=== PATIENT | female | born 1980 | race Caucasian/White ===

== ENCOUNTER 2018-07-08 17:31 | Emergency (ER) | payer SELFPAY ==
[~2018-07-08] VITALS: Ht 154.9 cm; Wt 80.7 kg
[2018-07-08 17:37] VITALS: BP 132/79; PULSE 92; RESP 17; Ht 154.9 cm; Wt 80.7 kg
[2018-07-08] MEDS ORDERED: HYDR28.334 TP (21:16)
[2018-07-08] MEDS ORDERED: LORA10CA PO (21:16)
[2018-07-08] MEDS ORDERED: BEN25 PO (21:16)
--- NOTE | 2018-07-08 21:22 | ERD ---
ER Documentation Chief Complaint Chief Complaint x 2 wks of worsening itchness and "dry skin" to L hand thumb HPI 38-year-old female presents for itchiness of her hand for about 2 weeks. She has dry skin. Itchiness and dryness is noted over the left thumb area and right third digit. She has prior similar symptoms in the past. She has been using coconut oil, aloe vera, Aquaphor hydration however she states that the skin dryness and itchiness is continuing. ROS All systems reviewed and are negative except as per history of present illness. Medications Home Meds Active Scripts Loratadine* (Claritin*) 10 Mg Capsule, 10 MG PO DAILY PRN for ITCHING, #30 CAP Prov:BELÉN BOTELLO DO 07/08/18 Hydrocortisone (Hydrocortisone Cr) 28.35 Gm Cr, 28.35 GM TP BID PRN for ITCHING for 7 Days, #1 TUBE Prov:BELÉN BOTELLO DO 07/08/18 Diphenhydramine Hcl* (Benadryl*) 25 Mg Cap, 25 MG PO Q6H PRN for ITCHING, #30 CAP Prov:BELÉN BOTELLO DO 07/08/18 Allergies Allergies: Coded Allergies: No Known Allergy (Unverified , 07/08/18) PMhx/Soc History of Surgery: Yes (APPENDECITIS) Hx Alcohol Use: No Hx Substance Use: No Hx Tobacco Use: No Smoking Status: Never smoker Physical Exam Vitals Vital Signs Date Temp Pulse Resp B/P (MAP) Pulse Ox O2 O2 Flow FiO2 Time Delivery Rate 07/08/18 98.7 92 17 132/79 97 17:37 (96) Physical Exam Const: No acute distress Resp: Clear to auscultation bilaterally, cap refill less than 2 seconds in all fingertips bilaterally Cardio: Regular rate and rhythm, no murmurs Skin: There is some dryness and skin cracking noted over the left thumb area and right third digit distally. Back: No midline or flank tenderness Neur: Awake and alert, bilateral hand sensation intact Psych: Normal Mood and Affect Procedures/MDM Medical Decision Making: Differential diagnosis includes but not limited to dermatitis, cellulitis, venous insufficiency Patient appeared well on physical exam. There was some dryness and skin cracking noted over the left thumb area and right third digit distally. Patient was neurovascularly intact. Physical examination consistent with a dermatitis possible contact dermatitis Prescription(s): Patient given prescription for supportive medication(s) including, Claritin, Benadryl, hydrocortisone cream. Advised that if symptoms do not improve that she may need to follow-up with dermatology Patient advised to follow up with PCP in 1-2 days. Patient advised to return to ED for new or worsening symptoms. Patient stable on discharge from the ED. Disclaimer: Inadvertent spelling and grammatical errors are likely due to EHR/dictation software use and do not reflect on the overall quality of patient care. Also, please note that the electronic time recorded on this note does not necessarily reflect the actual time of the patient encounter. Departure Diagnosis: Primary Impression: Dermatitis Condition: Fair Patient Instructions: Dermatitis, Non-Specific Referrals: [facility] YOU HAVE RECEIVED A MEDICAL SCREENING EXAM AND THE RESULTS INDICATE THAT YOU DO NOT HAVE A CONDITION THAT REQUIRES URGENT TREATMENT IN THE EMERGENCY DEPARTMENT. FURTHER EVALUATION AND TREATMENT OF YOUR CONDITION CAN WAIT UNTIL YOU ARE SEEN IN YOUR DOCTORS OFFICE WITHIN THE NEXT 1-2 DAYS. IT IS YOUR RESPONSIBILITY TO MAKE AN APPOINTMENT FOR FOLOW-UP CARE. IF YOU HAVE A PRIMARY DOCTOR --you should call your primary doctor and schedule an appointment IF YOU DO NOT HAVE A PRIMARY DOCTOR YOU CAN CALL OUR PHYSICIAN REFERRAL HOTLINE AT IF YOU CAN NOT AFFORD TO SEE A PHYSICIAN YOU CAN CHOSE FROM THE FOLLOWING [facility] [id number] [facility]. [facility] [address] [facility] [facility] [address] [facility] [facility] [address] [facility]. [facility] [address] [facility]. [facility]. [address] Additional Instructions: Llame al doctor MAANA y dario nimisha OVIDIO PARA DENTRO DE 1-2 CHAKRABORTY.Dgale a la secretaria que nosotros le instruimos hacer esta ovidio.Avise o llame si salinas condicin se empeora antes de la ovidio. Regresa aqui si peor o no mejor. BELÉN BOTELLO DO Jul 08, 2018 21:22
== END 2018-07-08 21:40 | disposition home or self-care (01) ==
LOC: FTE 17:31
DX: L30.9 Dermatitis, unspecified (principal)
CPT/HCPCS: 99283